=== PATIENT | female | born 1965 | race Caucasian/White ===

== ENCOUNTER 2016-08-21 18:34 | Emergency (ER) | payer BC, OTHER ==
[2016-08-21 18:48] VITALS: O2SAT 97
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
[2016-08-21] MEDS ORDERED: IBUPROFEN 600 MG TAB PO ONE (19:58)
[2016-08-21] MEDS ORDERED: LORazepam 1 MG TAB PO ONE (20:51)
[2016-08-21] MEDS ORDERED: LORAZEPAM 1 MG PREPACK#4 BTL TAKEHOME ONE (20:51)
[2016-08-21] MEDS ORDERED: METHOCARBAMOL 750 MG TAB PO ONE (20:51)
[2016-08-21 21:09] VITALS: BP 145/67; PULSE 71; RESP 16; TEMP 97.9
== END 2016-08-21 21:09 | disposition home or self-care (01) ==
DX: S29.9XXA Unspecified injury of thorax, initial encounter (principal); V49.49XA Driver injured in collision with other motor vehicles in traffic accident, initial encounter; Y92.410 Unspecified street and highway as the place of occurrence of the external cause; Y99.8 Other external cause status; Y93.89 Activity, other specified